=== PATIENT | male | born 1975 | race Two or more races ===

== ENCOUNTER 2024-05-29 09:24 | Emergency (ER) | payer OTHER ==
[~2024-05-29] VITALS: Ht 190.5 cm; Wt 100.0 kg
[2024-05-29 09:32] VITALS: BP 148/98; PULSE 108; RESP 20; TEMP 98.6; O2SAT 100
[2024-05-29] MEDS ORDERED: AMLO-257 PO (09:37)
== END 2024-05-29 10:33 | disposition left against medical advice (07) ==
LOC: EMS 09:29
DX: F22 Delusional disorders (principal); I10 Essential (primary) hypertension; F12.90 Cannabis use, unspecified, uncomplicated; Z98.890 Other specified postprocedural states
CPT/HCPCS: 74022; 99283